=== PATIENT | female | born 1970 | race African-American/Black ===

== ENCOUNTER 2016-09-03 05:18 | Emergency (ER) | payer MEDICAID ==
[~2016-09-03] VITALS: Ht 162.6 cm; Wt 91.0 kg
[2016-09-03] MEDS ORDERED: KETOROLAC 60MG/2ML VIAL IM ONE (06:45)
[2016-09-03 07:12] LABS: BASOPHILS % 0.9 % (0.0-2.0); EOSINOPHILS % 1.4 % (0.0-5.0); HEMATOCRIT. 38.1 % (36.0-48.0); LYMPHOCYTES % 29.8 % (20.0-50.0); MEAN CORPUSCULAR HEMOGLOBIN 25.7 pg (28.0-32.0); MEAN CORPUSCULAR VOLUME 75.5 fL (81.0-99.0); MEAN PLATELET VOLUME 9.5 fl (7.4-10.4); MONOCYTES % 8.2 % (2.0-8.0); NEUTROPHILS % 59.7 % (40.0-76.0); PLATELET 196 x1000/uL (130-400); RED BLOOD CELL COUNT 5.05 mill/uL (4.2-5.4); RED CELL DISTRIBUTION WIDTH 15.4 % (11.6-14.6)
[2016-09-03 07:22] LABS: CARBON DIOXIDE 27 mEq/L (21-32); CHLORIDE 104 mEq/L (98-107); ETHANOL BLOOD < 10 mg/dL
[2016-09-03 07:50] LABS: *AMPHETAMINES SCREEN URINE NEGATIVE (NEGATIVE); *BARBITURATES SCREEN URINE NEGATIVE (NEGATIVE); *BENZODIAZEPINES SCREEN URINE NEGATIVE (NEGATIVE); *COCAINE SCREEN URINE PRESUMTIVE POSITIVE (NEGATIVE); METHADONE URINE SCREEN NEGATIVE (NEGATIVE); OPIATES URINE SCREEN NEGATIVE (NEGATIVE); PHENCYCLIDINE URINE SCREEN NEGATIVE (NEGATIVE)
[2016-09-03 07:51] LABS: CANNABINOID URINE SCREEN PRESUMTIVE POSITIVE (NEGATIVE)
[2016-09-03 07:54] LABS: HCG SCREEN NEGATIVE
[2016-09-03 09:08] LABS: GLUCOSE URINE NEGATIVE (NEGATIVE); KETONES URINE NEGATIVE (NEGATIVE); LEUKOCYTE ESTERASE URINE NEGATIVE (NEGATIVE); NITRITE URINE NEGATIVE (NEGATIVE); OCCULT BLOOD URINE NEGATIVE (NEGATIVE); PH URINE 5.5 (4.5-8.0); PROTEIN URINE NEGATIVE (NEGATIVE); SPECIFIC GRAVITY URINE 1.016 (1.005-1.030); UROBILINOGEN URINE 0.2 E.U./dL (0.2-1.0)
[2016-09-03 09:09] LABS: CLARITY URINE CLEAR (CLEAR); COLOR URINE YELLOW (YELLOW)
[2016-09-03] MEDS ORDERED: ACETAMINOPHEN 325MG TABLET PO ONE (10:00)
[2016-09-03 10:13] VITALS: BP 144/81
[2016-09-08 04:12] LABS: CHLAMYDIA TRACHOMATIS NAA Negative (Negative); NEISSERIA GONORRHOEAE NAA Negative (Negative)
== END 2016-09-03 11:17 | disposition home or self-care (01) ==
LOC: ER 06:49
DX: R10.2 Pelvic and perineal pain (principal); F19.10 Other psychoactive substance abuse, uncomplicated; I10 Essential (primary) hypertension; F17.200 Nicotine dependence, unspecified, uncomplicated; Z98.890 Other specified postprocedural states; Z90.49 Acquired absence of other specified parts of digestive tract
CPT/HCPCS: 36415; 74176; 76830; 76856; 80053; 80305; 81003; 83690; 84703; 85025; 87210; 87491; 87591; 96372; 99285; G0482; J1885